=== PATIENT | male | born 1990 | race Caucasian/White ===

== ENCOUNTER 2017-01-08 17:44 | Emergency (ER) | payer SELFPAY ==
[2017-01-08 18:41] VITALS: BP 134/76
--- NOTE | 2017-01-08 18:58 | ER Document Report ---
ED Medical Screen (RME) - General Chief Complaint: Abdominal Pain Stated Complaint: ABDOMINAL PAIN Notes: Patient thinks he has a recurrent hernia in the left lower quadrant of his abdomen. He's been having pain there for about the past week and a half to 2 weeks and it's getting worse. He says that he's had about 7 hernias in the past , and surgery for them. Denies any nausea or vomiting. No change in bowel movements. No UTI symptoms. No fevers. 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 TRAVEL OUTSIDE OF THE [place] IN LAST 30 DAYS: No - Related Data Allergies/Adverse Reactions: cefaclor [From [employer]lor] Allergy (Verified 07/22/15 01:10) Past Medical History Pulmonary Medical History: Reports: Hx Asthma Denies: Hx Tuberculosis Renal/ Medical History: Reports: Hx Kidney Stones. Denies: Hx Peritoneal Dialysis Musculoskeltal Medical History: Reports Hx Musculoskeletal Deformity - scoliosis Traumatic Medical History: Reports: Hx Fractures Past Surgical History: Reports: Hx Abdominal Surgery - HERNIA X 9, Hx Inguinal Hernia - states 9 times - Immunizations Immunizations up to date: Yes Hx Diphtheria, Pertussis, Tetanus Vaccination: Yes Physical Exam - Vital signs Vitals: Temp Pulse Resp BP Pulse Ox 98.5 F 89 20 134/76 H 100 01/08/17 18:40 01/08/17 18:40 01/08/17 18:40 01/08/17 18:40 01/08/17 18:40 Course - Vital Signs Vital signs: Temp Pulse Resp BP Pulse Ox 98.5 F 89 20 134/76 H 100 01/08/17 18:40 01/08/17 18:40 01/08/17 18:40 01/08/17 18:40 01/08/17 18:40
[2017-01-08 19:16] LABS: ABSOLUTE BASOPHILS # (AUTO) 0.1 10^3/uL (0.0-0.2); ABSOLUTE EOSINOPHILS # (AUTO) 0.3 10^3/uL (0.0-0.6); ABSOLUTE LYMPHOCYTES (AUTO) 2.5 10^3/uL (0.5-4.7); ABSOLUTE MONOCYTES (AUTO) 0.7 10^3/uL (0.1-1.4); ABSOLUTE NEUT (AUTO) 7.9 10^3/uL (1.7-8.2); BASOPHILS % (AUTO) 0.7 % (0-2); EOSINOPHILS % (AUTO) 2.2 % (0-6); HEMATOCRIT 46.1 % (37.9-51.0); HEMOGLOBIN 15.8 g/dL (13.5-17.0); HGB HCT DIFFERENCE 1.3; LYMPHOCYTES % (AUTO) 21.9 % (13-45); MEAN CORPUSCULAR HGB CONC 34.2 g/dL (32.0-36.0); MEAN CORPUSCULAR VOLUME 94 fl (80-97); MONOCYTES % (AUTO) 6.2 % (3-13); RED BLOOD COUNT 4.92 10^6/uL (4.35-5.55); RED CELL DISTRIBUTION WIDTH 14.1 % (11.5-14.0); WHITE BLOOD COUNT 11.5 10^3/uL (4.0-10.5)
[2017-01-08 19:33] LABS: ALANINE AMINOTRANSFERASE 32 U/L (21-72); ALBUMIN 5.1 g/dL (3.5-5.0); ALKALINE PHOSPHATASE 54 U/L (38-126); ANION GAP 16 (5-19); ASPARTATE AMINO TRANSFERASE 31 U/L (17-59); BILIRUBIN,DIRECT 0.2 mg/dL (0.0-0.4); BILIRUBIN,TOTAL 0.4 mg/dL (0.2-1.3); BLOOD UREA NITROGEN 16 mg/dL (7-20); CALCIUM 10.7 mg/dL (8.4-10.2); CARBON DIOXIDE 26 mmol/L (22-30); CHLORIDE 103 mmol/L (98-107); CREATININE RESULT 0.79 mg/dL (0.52-1.25); GLUCOSE 71 mg/dL (75-110); LIPASE 43.4 U/L (23-300); POTASSIUM 4.4 mmol/L (3.6-5.0); SODIUM 145.1 mmol/L (137-145); TOTAL PROTEIN 7.8 g/dL (6.3-8.2)
== END 2017-01-09 04:40 | disposition left against medical advice (07) ==
LOC: ER 17:44
DX: Z53.9 Procedure and treatment not carried out, unspecified reason (principal); R10.9 Unspecified abdominal pain
CPT/HCPCS: 36415; 80053; 83690; 85025; 99281

== ENCOUNTER 2017-02-12 13:18 | Emergency (ER) | payer SELFPAY ==
[2017-02-12 13:29] VITALS: BP 134/84
[2017-02-12] MEDS ORDERED: PENICILLIN V POTASSIUM 500 MG TABLET PO ONE (13:46)
[2017-02-12] MEDS ORDERED: ACETAMINOPHEN WITH CODEINE #3 TABLET PO ONE (13:46)
--- NOTE | 2017-02-12 13:50 | ER Document Report ---
HPI - HPI Patient complains to provider of: dental pain Onset: Last week Onset/Duration: Worse Quality of pain: Achy Pain Level: 3 Context: Patient complains of dental pain off and on for the past 3 weeks that worsened over the past week. Patient denies any facial swelling or fever. Associated Symptoms: Other - Dental pain. denies: Nonproductive cough, Productive cough, Fever, Nausea, Vomiting Exacerbated by: Denies Relieved by: Denies Similar symptoms previously: Yes Recently seen / treated by doctor: No - ROS ROS below otherwise negative: Yes Systems Reviewed and Negative: Yes All other systems reviewed and negative - CONSTITUTIONAL Constitutional: DENIES: Fever, Chills - EENT Notes: Dental pain - NEURO Neurology: DENIES: Headache - CARDIOVASCULAR Cardiovascular: DENIES: Chest pain - RESPIRATORY Respiratory: DENIES: Trouble Breathing, Coughing - GASTROINTESTINAL Gastrointestinal: DENIES: Nausea, Patient vomiting - MUSCULOSKELETAL Musculoskeletal: DENIES: Extremity pain, Back Pain, Neck Pain - DERM Skin Color: Normal Skin Problems: None Past Medical History - General Information source: Patient - Social History Smoking Status: Current Every Day Smoker Frequency of alcohol use: None Drug Abuse: None Occupation: construction Lives with: Family Family History: Hypertension, Malignancy Patient has suicidal ideation: No Patient has homicidal ideation: No Pulmonary Medical History: Reports: Hx Asthma Denies: Hx Tuberculosis Renal/ Medical History: Reports: Hx Kidney Stones. Denies: Hx Peritoneal Dialysis Musculoskeltal Medical History: Reports Hx Musculoskeletal Deformity - scoliosis Traumatic Medical History: Reports: Hx Fractures Past Surgical History: Reports: Hx Abdominal Surgery - HERNIA X 9, Hx Inguinal Hernia - states 9 times - Immunizations Immunizations up to date: Yes Hx Diphtheria, Pertussis, Tetanus Vaccination: Yes Hx Pneumococcal Vaccination: 10/01/00 Vertical Provider Document - CONSTITUTIONAL Agree With Documented VS: Yes Exam Limitations: No Limitations General Appearance: WD/WN, No Apparent Distress - INFECTION CONTROL TRAVEL OUTSIDE OF THE [place] IN LAST 30 DAYS: No - HEENT HEENT: Atraumatic, Normocephalic. negative: Pharyngeal Exudate, Pharyngeal Tenderness, Pharyngeal Erythema, Tympanic Membrane Red, Tympanic Membrane Bulging Mouth Diagram: 1 - Dental caries, fracture 2 - Dental caries, fracture, tenderness, no gingival abscess, no trismus - NECK Neck: Normal Inspection, Supple. negative: Lymphadenopathy-Left, Lymphadenopathy-Right - RESPIRATORY Respiratory: Breath Sounds Normal, No Respiratory Distress, Chest Non-Tender O2 Sat by Pulse Oximetry: 100 - CARDIOVASCULAR Cardiovascular: Regular Rate, Regular Rhythm, No Murmur - MUSCULOSKELETAL/EXTREMETIES Musculoskeletal/Extremeties: MAEW - NEURO Level of Consciousness: Awake, Alert, Appropriate Motor/Sensory: No Motor Deficit - DERM Integumentary: Warm, Dry, No Rash Course - Re-evaluation Re-evalutation: 02/12/17 13:47 The patient has been informed that they may have pre-hypertension or hypertension based on a blood pressure reading in the emergency department. I recommend that patient call the primary care provider listed on their discharge instructions or a physician of their choice by this week to arrange follow-up for further evaluation of possible pre-hypertension her hypertension. - Vital Signs Vital signs: Temp Pulse Resp BP Pulse Ox 98.3 F 79 18 134/84 H 100 02/12/17 13:27 02/12/17 13:27 02/12/17 13:27 02/12/17 13:27 02/12/17 13:27 Discharge - Discharge Clinical Impression: Elevated blood pressure reading, Toothache Condition: Stable Disposition: HOME, SELF-CARE Instructions: Oral Narcotic Medication ([facility]), Toothache ([facility]), Penicillin V K ( [facility]) Additional Instructions: Return immediately for any new or worsening symptoms Followup with your primary care provider, call tomorrow to make a followup appointment Your blood pressure was mildly elevated today, recheck with primary doctor in a week. Follow up with a dental care provider for further evaluation Prescriptions: Acetaminophen with Codeine [Acetaminophen-Cod #3 Tablet] 1 each PO Q6 PRN #15 tablet PRN Reason: Penicillin V Potassium [Penicillin Vk 500 mg Tablet] 500 mg PO BID #20 tablet Forms: Elevated Blood Pressure, Return to Work Referrals: [facility] [Provider Group] - Follow up as needed [facility] [Provider Group] - Follow up as needed
== END 2017-02-12 14:06 | disposition home or self-care (01) ==
LOC: ER 13:18
DX: R03.0 Elevated blood-pressure reading, without diagnosis of hypertension (principal); K08.9 Disorder of teeth and supporting structures, unspecified; F17.200 Nicotine dependence, unspecified, uncomplicated; Z87.442 Personal history of urinary calculi
CPT/HCPCS: 99282

== ENCOUNTER 2017-02-27 17:09 | Emergency (ER) | payer SELFPAY ==
--- NOTE | 2017-02-27 18:53 | ER Document Report ---
ED Oral Problem - General Chief Complaint: Toothache Stated Complaint: TOOTH PAIN Time Seen by Provider: 02/27/17 18:29 Mode of Arrival: Ambulatory Information source: Patient Notes: 26-year-old male presents to ED for dental pain and tooth #32. He states he has had for several weeks. He was seen recently for the same tooth that he cannot get into the dentist until 05 March. TRAVEL OUTSIDE OF THE [place] IN LAST 30 DAYS: No - HPI Patient complains to provider of: Toothache Onset: Other - Several weeks worse for the last 3 days Onset: Gradual Quality of pain: Sharp, Throbbing Severity: Moderate Pain Level: 3 Associated symptoms: Toothache Worsened by: Cold Relieved by: Nothing Similar symptoms previously: Yes Recently seen / treated by doctor/dentist: Yes - Related Data Allergies/Adverse Reactions: cefaclor [From Ce[employer]or] Allergy (Verified 07/22/15 01:10) hydrocodone Adverse Reaction (Verified 02/12/17 13:27) itching Past Medical History - General Information source: Patient - Social History Smoking Status: Current Every Day Smoker Cigarette use (# per day): Yes - Pack per day Chew tobacco use (# tins/day): No Smoking Education Provided: Yes - Less than 2 minutes Frequency of alcohol use: Social Drug Abuse: None 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 with: Spouse/Significant other Family History: Arthritis, Hypertension, Malignancy - Past Medical History Cardiac Medical History: Reports: None Pulmonary Medical History: Reports: Hx Asthma EENT Medical History: Reports: None Neurological Medical History: Reports: None Endocrine Medical History: Reports: None Renal/ Medical History: Reports: Hx Kidney Stones Malignancy Medical History: Reports None GI Medical History: Reports: None Musculoskeltal Medical History: Reports Hx Musculoskeletal Deformity - scoliosis Skin Medical History: Reports None Psychiatric Medical History: Reports: None Traumatic Medical History: Reports: Hx Fractures Infectious Medical History: Reports: None Past Surgical History: Reports: Hx Abdominal Surgery - HERNIA X 7, a ventral hernia to inguinal hernia, Hx Inguinal Hernia - states 2 times - Immunizations Immunizations up to date: Yes Hx Diphtheria, Pertussis, Tetanus Vaccination: Yes Hx Pneumococcal Vaccination: 10/01/00 Review of Systems - Review of Systems Constitutional: No symptoms reported EENT: Dental problem Cardiovascular: No symptoms reported Respiratory: No symptoms reported Gastrointestinal: No symptoms reported Genitourinary: No symptoms reported Male Genitourinary: No symptoms reported Musculoskeletal: No symptoms reported Skin: No symptoms reported Hematologic/Lymphatic: No symptoms reported Neurological/Psychological: No symptoms reported Physical Exam - Vital signs Vitals: Temp Pulse Resp BP Pulse Ox 98.8 F 77 16 127/69 H 100 02/27/17 18:50 02/27/17 18:50 02/27/17 18:50 02/27/17 18:50 02/27/17 18:50 Interpretation: Normal - General General appearance: Appears well, Alert - HEENT Head: Normocephalic, Atraumatic Eyes: Normal Pupils: PERRL Ears: Normal External canal: Normal Tympanic membrane: Normal Sinus: Normal Nasal: Normal Mouth/Lips: Caries Mucous membranes: Normal Teeth diagram: 1 - Dental caries large holes mild swelling to the gums 2 - Dental caries 3 - Large dental caries Pharynx: Normal Neck: Normal - Respiratory Respiratory status: No respiratory distress Chest status: Nontender Breath sounds: Normal Chest palpation: Normal - Cardiovascular Rhythm: Regular Heart sounds: Normal auscultation Murmur: No - Abdominal Inspection: Normal Distension: No distension Bowel sounds: Normal Tenderness: Nontender Organomegaly: No organomegaly - Back Back: Normal, Nontender - Extremities General upper extremity: Normal inspection, Nontender, Normal color, Normal ROM , Normal temperature General lower extremity: Normal inspection, Nontender, Normal color, Normal ROM , Normal temperature, Normal weight bearing. No: Josiah's sign - Neurological Neuro grossly intact: Yes Cognition: Normal Orientation: AAOx4 Emilie Coma Scale Eye Opening: Spontaneous [place] Coma Scale Verbal: Oriented [place] Coma Scale Motor: Obeys Commands [place] Coma Scale Total: 15 Speech: Normal Motor strength normal: LUE, RUE, LLE, RLE Sensory: Normal - Psychological Associated symptoms: Normal affect, Normal mood - Skin Skin Temperature: Warm Skin Moisture: Dry Skin Color: Normal Course - Vital Signs Vital signs: Temp Pulse Resp BP Pulse Ox 97.9 F 66 16 132/77 H 98 02/27/17 19:24 02/27/17 19:24 02/27/17 19:24 02/27/17 19:24 02/27/17 19:24 Discharge - Discharge Clinical Impression: Pain due to dental caries Condition: Stable Disposition: HOME, SELF-CARE Additional Instructions: TOOTHACHE: Your pain is due to dental decay. The tooth must be repaired in order for you to feel better. You will, therefore, be referred to a dentist. We do not have dentists on the staff at [facility]. Severe swelling or drainage around a tooth usually means a dental abscess. This also requires evaluation and treatment by the dentist, but antibiotics may be prescribed while awaiting dental treatment. You should be rechecked immediately if you develop major swelling of the face, increasing pain, a lump in the jaw or gums, headache, difficulty swallowing, or fever. CLINDAMYCIN: You have been given a prescription for the antibiotic clindamycin. It is often prescribed for infections in the mouth, such as dental infections or abscesses, and for skin infections due to MRSA. It's important that you take all the medication, unless instructed otherwise by your physician. Failure to complete the entire course can result in relapse of your condition. Common side effects of antibiotics include nausea, intestinal cramping, or diarrhea. Women may develop vaginal yeast infections, and babies can get yeast (thrush) in the mouth following the use of antibiotics. Contact your physician if you develop significant side effects from this medication. Allergy to this antibiotic can result in hives, wheezing, faintness, or itching. If symptoms of allergy occur, stop the medication and call the doctor. Ibuprofen Ibuprofen is an excellent, safe drug for pain control. In addition, it has potent antiinflammatory effects which are beneficial, especially in the treatment of injuries, arthritis, or tendonitis. It's best to take ibuprofen with food. Persons with ulcer disease or allergy to aspirin should notify their physician of this before taking ibuprofen. Take the medication exactly as prescribed. Don't take additional doses unless instructed to do so by your doctor. If you develop wheezing, shortness of breath, hives, faintness, stomach pain, vomiting, or dark black stools, return for re-evaluation at once. Chronic Pain Control Stress, inactivity, and depression make pain more severe regardless of the cause of the pain. Stress and poor physical condition can cause pain such as headaches and backache. Relaxation: Rest in a quiet place with your eyes closed for 20 minutes twice daily. Concentrate on a pleasant image, or simply "feel" your breathing. Clear your mind. Stress management: Deal with your "stressors." Either take action, or eliminate the stressor from your life. Don't let things hang over you. Accept those things you can't change. Nutrition: Eat small, balanced meals -- don't skip, don't overeat. Meals should be high-carbohydrate, low-sugar, low-fat. Exercise: Exercise helps painful conditions and eases stress. Get 30 minutes of moderate exercise, five days a week. Do an activity that does not flare your pain. Precautions: Pain which continues to disrupt daily activities, or which changes in nature, requires a medical evaluation. Pain Clinic referral is available. We do not manage chronic pain in the Emergency Department. We will try to appropriately help you through an acute flare of your chronic painful condition , but for on-going chronic pain that does not improve, you will need to see your private doctor or painter airbrush. We do not provide repeated medication management of chronic painful conditions. If you wish, we can provide the name of local pain management physicians. FOLLOW-UP CARE: You have been referred for follow-up care to the dentists listed below. Call the dentists office for an appointment as you were instructed or within the next two days. If you experience worsening or a significant change in your symptoms, notify the physician immediately or return to the Emergency Department at any time for re-evaluation. [facility] [address] [place], [place] Sunday mornings, by appointment [facility] [address] [place] [address] [facility] [address] [facility] [address] [facility] [address] [facility]. [email or web address] [address] [place] [address] Sunday- 8:00am to 5:00 pm Will see patients from other [facility] [place]. Charges based on income and family size and accepts Medicare, Medicaid, and Insurances Will pull molars [facility], [facility]. [id number] Hours of Operation 8:00 am - 4:30 pm weekdays The following dental offices accept Medicaid: [facility] Dr. Carias Dr. Maurer Dr. Platt Dr. Finn Neel Leavitt [place], and [facility] oral [facility] Dr. Guerra ([place]) Dr. Duarte ([place]) [facility] Drs. Lala ([place]) Dr. Cristina ([place]) [facility], [facility] Dr. Rivera ([place]) Drs. Zaragoza and ([place]) Medicaid Care Line Prescriptions: Ibuprofen 800 mg PO Q8HP PRN #14 tablet PRN Reason: Clindamycin HCl 300 mg PO Q6 7 Days Forms: Smoking Cessation Education, Return to Work
[2017-02-27] MEDS ORDERED: IBUPROFEN 800 MG TABLET PO ONE (18:54)
[2017-02-27] MEDS ORDERED: CLINDAMYCIN HCL 150 MG CAPSULE PO ONE (18:54)
[2017-02-27 19:27] VITALS: BP 132/77
== END 2017-02-27 19:27 | disposition home or self-care (01) ==
LOC: ER 17:09
DX: K02.9 Dental caries, unspecified (principal); F17.210 Nicotine dependence, cigarettes, uncomplicated; J45.909 Unspecified asthma, uncomplicated; Z88.6 Allergy status to analgesic agent
CPT/HCPCS: 99282

== ENCOUNTER 2017-05-14 07:51 | Emergency (ER) | payer SELFPAY ==
--- NOTE | 2017-05-14 08:20 | ER Document Report ---
HPI - HPI Patient complains to provider of: Cough, sore throat Onset: Other Onset/Duration: Persistent - 3 days Quality of pain: Achy Pain Level: 2 Context: Patient presents complaining of productive cough for the past 3 days. Patient does report recent sick contacts with upper respiratory symptoms. Patient denies any fever, nausea, vomiting, or diarrhea. Patient does complain of sore throat as well. Associated Symptoms: Productive cough, Sore throat. denies: Fever, Nausea, Vomiting Exacerbated by: Denies Relieved by: Denies Similar symptoms previously: Yes Recently seen / treated by doctor: No - ROS ROS below otherwise negative: Yes Systems Reviewed and Negative: Yes All other systems reviewed and negative - CONSTITUTIONAL Constitutional: DENIES: Fever - EENT EENT: REPORTS: Sore Throat - NEURO Neurology: DENIES: Headache - CARDIOVASCULAR Cardiovascular: DENIES: Chest pain - RESPIRATORY Respiratory: REPORTS: Coughing. DENIES: Trouble Breathing - GASTROINTESTINAL Gastrointestinal: DENIES: Nausea, Patient vomiting, Diarrhea - MUSCULOSKELETAL Musculoskeletal: DENIES: Back Pain, Neck Pain - DERM Skin Color: Normal Skin Problems: None Past Medical History - General Information source: Patient - Social History Smoking Status: Current Every Day Smoker Frequency of alcohol use: Occasional Drug Abuse: None Occupation: Construction Family History: Arthritis, Hypertension, Malignancy Pulmonary Medical History: Reports: Hx Asthma Denies: Hx Tuberculosis Renal/ Medical History: Reports: Hx Kidney Stones. Denies: Hx Peritoneal Dialysis Musculoskeltal Medical History: Reports Hx Musculoskeletal Deformity - scoliosis Traumatic Medical History: Reports: Hx Fractures Past Surgical History: Reports: Hx Abdominal Surgery - HERNIA X 7, a ventral hernia to inguinal hernia, Hx Inguinal Hernia - states 2 times - Immunizations Immunizations up to date: Yes Hx Diphtheria, Pertussis, Tetanus Vaccination: Yes Hx Pneumococcal Vaccination: 10/01/00 Vertical Provider Document - CONSTITUTIONAL Agree With Documented VS: Yes Exam Limitations: No Limitations General Appearance: WD/WN, No Apparent Distress - INFECTION CONTROL TRAVEL OUTSIDE OF THE [place] IN LAST 30 DAYS: No - HEENT HEENT: Atraumatic, Normocephalic, Pharyngeal Tenderness, Pharyngeal Erythema. negative: Pharyngeal Exudate, Tympanic Membrane Red, Tympanic Membrane Bulging - NECK Neck: Normal Inspection, Supple. negative: Lymphadenopathy-Left, Lymphadenopathy-Right - RESPIRATORY Respiratory: No Respiratory Distress, Chest Non-Tender. negative: Rales, Rhonchi, Wheezing O2 Sat by Pulse Oximetry: 97 Notes: occasional dry cough - CARDIOVASCULAR Cardiovascular: Regular Rate, Regular Rhythm, No Murmur - BACK Back: Normal Inspection. negative: CVA Tenderness-Right, CVA Tenderness-Left - MUSCULOSKELETAL/EXTREMETIES Musculoskeletal/Extremeties: MAEW - NEURO Level of Consciousness: Awake, Alert, Appropriate Motor/Sensory: No Motor Deficit - DERM Integumentary: Warm, Dry, No Rash Course - Re-evaluation Re-evalutation: 05/14/17 08:54 The patient has been informed that they may have pre-hypertension or hypertension based on a blood pressure reading in the emergency department. I recommend that patient call the primary care provider listed on their discharge instructions or a physician of their choice by this week to arrange follow-up for further evaluation of possible pre-hypertension or hypertension. - Vital Signs Vital signs: Temp Pulse Resp BP Pulse Ox 97.9 F 73 19 142/73 H 97 05/14/17 07:52 05/14/17 07:52 05/14/17 07:52 05/14/17 07:52 05/14/17 07:52 - Laboratory Laboratory results interpreted by me: 05/14/17 08:54 Labs- Entire Visit 05/14/17 08:16 Group A Strep Rapid NEGATIVE Discharge - Discharge Clinical Impression: Sore throat Upper respiratory infection Qualifiers: URI type: unspecified URI Qualified Code(s): J06.9 - Acute upper respiratory infection, unspecified Condition: Stable Disposition: HOME, SELF-CARE Instructions: Upper Respiratory Illness ([facility]), Acetaminophen, Sore Throat ([facility]) Additional Instructions: Return immediately for any new or worsening symptoms Followup with your primary care provider, call tomorrow to make a followup appointment Throat culture is pending, we will call if you need any different treatment Stop smoking Prescriptions: Albuterol Sulfate [Ventolin Hfa] 2 puff IH Q4HP PRN #17 gm PRN Reason: Benzonatate [Tessalon [place] 100 mg Capsule] 100 mg PO Q8HP PRN #20 cap PRN Reason: Naproxen [Naprosyn 250 Nmg Tablet] 1 tab PO BID #14 tablet Forms: Return to Work Referrals: [facility] [Provider Group] - Follow up as needed [facility] [Provider Group] - Follow up as needed
[2017-05-14] MEDS ORDERED: IBUPROFEN 800 MG TABLET PO ONE (08:21)
[2017-05-14 09:12] VITALS: BP 129/76
== END 2017-05-14 09:07 | disposition home or self-care (01) ==
LOC: ER 07:51
DX: J06.9 Acute upper respiratory infection, unspecified (principal); J02.9 Acute pharyngitis, unspecified; R05 Cough; F17.200 Nicotine dependence, unspecified, uncomplicated
CPT/HCPCS: 87070; 87077; 87880; 99283

== ENCOUNTER 2017-07-08 20:58 | Emergency (ER) | payer SELFPAY ==
[2017-07-08] MEDS ORDERED: NORMAL SALINE 500 ML IV ONE (21:07)
[2017-07-08 21:48] LABS: ABSOLUTE BASOPHILS # (AUTO) 0.1 10^3/uL (0.0-0.2); ABSOLUTE EOSINOPHILS # (AUTO) 0.2 10^3/uL (0.0-0.6); ABSOLUTE LYMPHOCYTES (AUTO) 2.5 10^3/uL (0.5-4.7); ABSOLUTE MONOCYTES (AUTO) 0.6 10^3/uL (0.1-1.4); ABSOLUTE NEUT (AUTO) 6.3 10^3/uL (1.7-8.2); BASOPHILS % (AUTO) 0.8 % (0-2); EOSINOPHILS % (AUTO) 2.3 % (0-6); HEMOGLOBIN 15.3 g/dL (13.5-17.0); HGB HCT DIFFERENCE 1.9; LYMPHOCYTES % (AUTO) 25.8 % (13-45); MEAN CORPUSCULAR HEMOGLOBIN 32.5 pg (27.0-33.4); MEAN CORPUSCULAR HGB CONC 34.8 g/dL (32.0-36.0); MEAN CORPUSCULAR VOLUME 93 fl (80-97); MONOCYTES % (AUTO) 5.8 % (3-13); RED BLOOD COUNT 4.71 10^6/uL (4.35-5.55); RED CELL DISTRIBUTION WIDTH 13.4 % (11.5-14.0); SEGMENTED NEUTROPHILS % (AUTO) 65.3 % (42-78); WHITE BLOOD COUNT 9.7 10^3/uL (4.0-10.5)
[2017-07-08 22:01] LABS: ALANINE AMINOTRANSFERASE 29 U/L (21-72); ALBUMIN 4.8 g/dL (3.5-5.0); ALKALINE PHOSPHATASE 57 U/L (38-126); ANION GAP 12 (5-19); ASPARTATE AMINO TRANSFERASE 39 U/L (17-59); BILIRUBIN,DIRECT 0.4 mg/dL (0.0-0.4); BILIRUBIN,TOTAL 0.6 mg/dL (0.2-1.3); BLOOD UREA NITROGEN 16 mg/dL (7-20); CALCIUM 9.9 mg/dL (8.4-10.2); CARBON DIOXIDE 31 mmol/L (22-30); CHLORIDE 100 mmol/L (98-107); CREATININE RESULT 0.96 mg/dL (0.52-1.25); GLUCOSE 92 mg/dL (75-110); LIPASE 53.3 U/L (23-300); POTASSIUM 4.6 mmol/L (3.6-5.0); SODIUM 143.3 mmol/L (137-145); TOTAL PROTEIN 7.8 g/dL (6.3-8.2)
[2017-07-08 22:15] LABS: APPEARANCE,URINE CLEAR; BILIRUBIN,URINE NEGATIVE (NEGATIVE); GLUCOSE, URINE NEGATIVE (NEGATIVE); KETONES,URINE NEGATIVE (NEGATIVE); LEUKOCYTE ESTERASE,URINE NEGATIVE (NEGATIVE); NITRITE,URINE NEGATIVE (NEGATIVE); PROTEIN,URINE NEGATIVE (NEGATIVE); URINE SPECIFIC GRAVITY 1.008; UROBILINOGEN,URINE NEGATIVE mg/dL (<2.0)
--- NOTE | 2017-07-08 23:01 | ER Document Report ---
ED General - General Chief Complaint: Abdominal Pain Stated Complaint: LOWER ABDOMINAL PAIN Time Seen by Provider: 07/08/17 22:20 Notes: Patient is a 27-year-old male with past medical history of multiple prior abdominal hernia repairs who presents with 2 months of intermittent abdominal pain. Does describe his abdominal pain as being proximally 5-10 minute episodes of severe, cramping abdominal pain usually the left side of his abdomen that then spontaneously resolves. Nothing seems to trigger the pain and it does resolve spontaneously. He denies a history of similar symptoms in the past. States he does have regular bowel movements. He denies any vomiting or diarrhea. No fever or constitutional symptoms. He has not seen a primary care doctor regarding today's concerns. Nothing is new or different about the pain today that prompted him come to the emergency department. He denies any pain at time of my assessment. TRAVEL OUTSIDE OF THE [place] IN LAST 30 DAYS: No - Related Data Allergies/Adverse Reactions: cefaclor [From Ceclor] Allergy (Verified 05/14/17 07:54) hydrocodone Adverse Reaction (Verified 05/14/17 07:54) itching Past Medical History - General Information source: Patient - Social History Smoking Status: Current Every Day Smoker Chew tobacco use (# tins/day): No Frequency of alcohol use: Occasional Drug Abuse: None Lives with: Spouse/Significant other Family History: Reviewed & Not Pertinent, Arthritis, Hypertension, Malignancy Patient has suicidal ideation: No Patient has homicidal ideation: No Pulmonary Medical History: Reports: Hx Asthma Denies: Hx Tuberculosis Renal/ Medical History: Reports: Hx Kidney Stones. Denies: Hx Peritoneal Dialysis Musculoskeltal Medical History: Reports Hx Musculoskeletal Deformity - scoliosis Traumatic Medical History: Reports: Hx Fractures Past Surgical History: Reports: Hx Abdominal Surgery - HERNIA X 7, a ventral hernia to inguinal hernia, Hx Inguinal Hernia - states 2 times - Immunizations Immunizations up to date: Yes Hx Diphtheria, Pertussis, Tetanus Vaccination: Yes Hx Pneumococcal Vaccination: 10/01/00 Review of Systems - Review of Systems Notes: Constitutional: Negative for fever. HENT: Negative for sore throat. Eyes: Negative for visual changes. Cardiovascular: Negative for chest pain. Respiratory: Negative for shortness of breath. Gastrointestinal: Positive for abdominal pain Genitourinary: Negative for dysuria. Musculoskeletal: Negative for back pain. Skin: Negative for rash. Neurological: Negative for headaches, weakness or numbness. 10 point ROS negative except as marked above and in HPI. Physical Exam - Vital signs Vitals: Temp 97.4 F 07/08/17 21:07 Interpretation: Normal Notes: PHYSICAL EXAMINATION: GENERAL: Well-appearing, well-nourished and in no acute distress. HEAD: Atraumatic, normocephalic. EYES: Pupils equal round and reactive to light, extraocular movements intact, sclera anicteric, conjunctiva are normal. ENT: nares patent, oropharynx clear without exudates. Moist mucous membranes. NECK: Normal range of motion, supple without lymphadenopathy LUNGS: Breath sounds clear to auscultation bilaterally and equal. No wheezes rales or rhonchi. HEART: Regular rate and rhythm without murmurs ABDOMEN: Soft, nontender, normoactive bowel sounds. No guarding, no rebound. No masses appreciated. EXTREMITIES: Normal range of motion, no pitting or edema. No cyanosis. NEUROLOGICAL: No focal neurological deficits. Moves all extremities spontaneously and on command. PSYCH: Normal mood, normal affect. SKIN: Warm, Dry, normal turgor, no rashes or lesions noted. Course - Re-evaluation Re-evalutation: 07/08/17 23:23 Patient presents with 2 months of intermittent left-sided abdominal pain. Abdominal exam is benign here without any focal abdominal tenderness, rebound or guarding. Vitals are within normal limits. Labs are unremarkable. He denies any testicular tenderness. Clinical history is most suggestive of a benign diagnosis such as irritable bowel disease, possible constipation given his characterization of brief episodes of pain lasting approximately 5-10 minutes and then spontaneously resolving. Alternative considerations could include an inflammatory bowel disease although this would be unusual in the setting of an absence of any additional symptoms such as weight loss, vomiting, diarrhea, bloody stools, and in the absence of a leukocytosis on blood work. I have encouraged the patient to trial a MiraLAX cleanout and if this does not resolve his symptoms to follow-up with GI for a colonoscopy for further evaluation. I do not believe any imaging is indicated at this time as I do not suspect an acute life-threatening or surgical diagnosis. At this time will discharge with return precautions and follow-up recommendations. Verbal discharge instructions given a the bedside and opportunity for questions given. Medication warnings reviewed. Patient is in agreement with this plan and has verbalized understanding of return precautions and the need for primary care follow-up in the next 24-72 hours. - Vital Signs Vital signs: Temp Pulse Resp BP Pulse Ox 97.4 F 58 L 18 115/70 98 07/08/17 21:07 07/09/17 00:17 07/09/17 00:17 07/09/17 00:17 07/09/17 00:17 - Laboratory Result Diagrams: 07/08/17 21:24 07/08/17 21:24 Laboratory results interpreted by me: 07/08/17 21:24 Carbon Dioxide 31 H Discharge - Discharge Clinical Impression: Intermittent abdominal pain Condition: Good Disposition: HOME, SELF-CARE Additional Instructions: You have been seen in the Emergency Department (ED) for abdominal pain. Your evaluation did not identify a clear cause of your symptoms but was generally reassuring. For possible constipation: You should take 8 caps of MiraLAX and placed in 1 liter of Gatorade. Drink one half of the solution and wait 4 hours. If you do not have a bowel movement take the remaining half of the solution. Please follow up with your doctor as soon as possible regarding today's emergent visit and the symptoms that are bothering you. Return to the ED if your abdominal pain worsens or fails to improve, you develop bloody vomiting, bloody diarrhea, you are unable to tolerate fluids due to vomiting, fever greater than 101, or other symptoms that concern you. Forms: Return to Work Referrals: PRUDENCIO ANTHONY MD [ACTIVE STAFF] - Follow up as needed
[2017-07-09 00:19] VITALS: BP 115/70
== END 2017-07-09 00:17 | disposition home or self-care (01) ==
LOC: ER 20:58
DX: R10.30 Lower abdominal pain, unspecified (principal); F17.200 Nicotine dependence, unspecified, uncomplicated; Z88.6 Allergy status to analgesic agent; Z87.442 Personal history of urinary calculi
CPT/HCPCS: 99284; 36415; 83690; 85025; 80053; 81001; J7040

== ENCOUNTER 2017-09-25 23:31 | Emergency (ER) | payer SELFPAY ==
[2017-09-25 23:51] VITALS: BP 141/97
[2017-09-26] MEDS ORDERED: ACETAMINOPHEN WITH CODEINE #3 TABLET PO ONE (00:12)
[2017-09-26] MEDS ORDERED: BUPIVACAINE HCL 0.5 % INJ/PF 30 ML SDV INJ ONE (00:12)
[2017-09-26] MEDS ORDERED: PENICILLIN V POTASSIUM 500 MG TABLET PO ONE (00:12)
[2017-09-26] MEDS ORDERED: DIPHENHYDRAMINE HCL 25 MG CAPSULE PO ONE (00:13)
--- NOTE | 2017-09-26 00:13 | ER Document Report ---
HPI - HPI Patient complains to provider of: Toothache Pain Level: 4 Context: Patient is a 27-year-old male presents emergency department complaining of right lower tooth ache for the past 3 days. Patient states his been waxing and waning in severity and got worse tonight. States been taking Tylenol and Motrin at home. Denies any foul odor or drainage, difficulty breathing, difficulty swallowing, fever or chills. - CONSTITUTIONAL Constitutional: DENIES: Fever, Chills Past Medical History - Social History Smoking Status: Current Every Day Smoker Chew tobacco use (# tins/day): No Frequency of alcohol use: Social Drug Abuse: None Family History: Reviewed & Not Pertinent, Arthritis, Hypertension, Malignancy Patient has suicidal ideation: No Patient has homicidal ideation: No Pulmonary Medical History: Reports: Hx Asthma Denies: Hx Tuberculosis Renal/ Medical History: Reports: Hx Kidney Stones. Denies: Hx Peritoneal Dialysis Musculoskeltal Medical History: Reports Hx Musculoskeletal Deformity - scoliosis Traumatic Medical History: Reports: Hx Fractures Past Surgical History: Reports: Hx Abdominal Surgery - HERNIA X 7, a ventral hernia to inguinal hernia, Hx Inguinal Hernia - states 2 times - Immunizations Immunizations up to date: Yes Hx Diphtheria, Pertussis, Tetanus Vaccination: Yes Hx Pneumococcal Vaccination: 10/01/00 Vertical Provider Document - CONSTITUTIONAL Agree With Documented VS: Yes Notes: PHYSICAL EXAM GENERAL: Alert, interacts well. HEENT: NCAT, no facial swelling. MMM, Uvula midline. Airway patent. No evidence of tonsillar enlargement, peritonsillar abscess, retropharyngeal abscess. Patient with tenderness over tooth 32 with evidence of severe dental decay. Patient with dental caries throughout his entire mouth. NECK: No evidence of Husam's angina full range of motion. Supple. Trachea midline. LUNGS: Clear to auscultation bilaterally, no wheezes, rales, or rhonchi. No respiratory distress. HEART: Regular rate and rhythm. No murmurs, gallops, or rubs. NEUROLOGICAL: Alert and oriented x4. Normal speech. PSYCH: Normal affect, normal mood. SKIN: Warm, dry, normal turgor. No rashes or lesions noted. - INFECTION CONTROL TRAVEL OUTSIDE OF THE [place] IN LAST 30 DAYS: No - RESPIRATORY O2 Sat by Pulse Oximetry: 100 Course - Re-evaluation Re-evalutation: 09/26/17 00:46 Patient is a 27-year-old male who is hemodynamically stable, no acute distress and afebrile. Presentation is most consistent with likely an infected tooth. Airway is patent. Vitals within normal limits. Patient is able swallow without any difficulty. There is no significant facial swelling. Patient will be started on antibiotics. Patient received a 5 cc infra alveolar dental block with complete resolution of his pain and no complications.. I've instructed to follow-up with dentistry as earliest ability for definitive management. Return precautions and follow-up recommendations have been discussed at length. - Vital Signs Vital signs: Temp Pulse Resp BP Pulse Ox 98.1 F 75 20 141/97 H 100 09/25/17 23:51 09/25/17 23:51 09/25/17 23:51 09/25/17 23:51 09/25/17 23:51 Procedures - Additional Procedures Dental block Additional Procedures: Other - Patient received a 5 cc 0.5% bupivacaine infraalveolar dental block with complete resolution of his symptoms no complications and patient told the procedure well Discharge - Discharge Clinical Impression: Toothache Condition: Good Disposition: HOME, SELF-CARE Additional Instructions: You have been seen for dental pain. It is very important that you follow-up with a dentist for definitive care. Please return if you develop fever greater than 101, swelling in your face, vomiting, difficulty breathing or swallowing, or any other symptoms that are concerning to you. For pain you should take ibuprofen 600 mg every 6 hours as needed. TOOTHACHE: Your pain is due to dental decay. The tooth must be repaired in order for you to feel better. You will, therefore, be referred to a dentist. We do not have dentists on the staff at [facility]. Severe swelling or drainage around a tooth usually means a dental abscess. This also requires evaluation and treatment by the dentist, but antibiotics may be prescribed while awaiting dental treatment. You should be rechecked immediately if you develop major swelling of the face, increasing pain, a lump in the jaw or gums, headache, difficulty swallowing, or fever. PENICILLIN V K: You have been given a prescription for Penicillin VK. Your physician has determined that this is the best antibiotic for your condition. Pen VK can be taken with meals, however more of the antibiotic gets into the bloodstream if it's taken on an empty stomach. Penicillin usually has no side effects. However, allergy to penicillins is common. If you have had an allergic reaction to any drug of the penicillin family, you should never take any other penicillin. Notify your doctor at once if you develop hives, itching, swelling, faintness, or shortness of breath. FOLLOW-UP CARE: You have been referred for follow-up care to the dentists listed below. Call the dentists office for an appointment as you were instructed or within the next two days. If you experience worsening or a significant change in your symptoms, notify the physician immediately or return to the Emergency Department at any time for re-evaluation. [facility] [address] Sunday mornings, by appointment [facility] [address] [address] For Patients If you need a regular family dentist and are considering the [facility] as a care provider, the first thing you'll need to do is make an appointment in our Screening Clinic by calling [phone] between the hours of 8:00 a.m. and 5:00 p.m. Sunday through Sunday. Because we are a teaching program, we will spend more time with you for each visit, and we may ask you to make a few extra visits to complete your dental care. We think you will enjoy our compassionate care, affordable fees, and friendly environment. Parking [facility] is handy, free, and easy. Patients are asked to park on the [facility] side of the building in areas designated as Patient Parking. Screening Clinic The purpose of the screening appointment is to gather information about your overall health, dental treatment needs, and to determine if treatment in our student clinics is right for you. We regret that all patients screened cannot be accepted for dental care in our student clinics. We will offer alternative treatment options if that is the case. Screening is not a treatment planning appointment, and no treatment other than a limited examination/diagnosis will be performed at the screening appointment. Your appointment will be in [facility] located at [facility] in [place]. Fees and Payment There is no charge for the initial screening appointment except for fees incurred for dental x-rays. Patients will be charged for dental x-rays and treatment during future visits. The cost of dental care in student and resident clinics is less than at most private dental offices. Medicaid and most private dental insurance plans are accepted. We accept mathur, credit cards, and personal checks. As a patient, you will receive detailed information concerning our financial policies. Prescriptions: Penicillin V Potassium [Penicillin Vk 500 mg Tablet] 500 mg PO TID 7 Days #21 tablet Forms: Return to Work
[2017-09-26] MEDS ORDERED: HYDROCODONE/ACETAMINOPHEN 5-325 MG (6 TAB/ER DISP) PO PRN (00:50)
== END 2017-09-26 00:57 | disposition home or self-care (01) ==
LOC: ER 23:31
PROC: 3E0T3BZ Introduction of Anesthetic Agent into Peripheral Nerves and Plexi, Percutaneous Approach (ICD-10-PCS; principal; 2017-09-25)
DX: K08.89 Other specified disorders of teeth and supporting structures (principal); F17.200 Nicotine dependence, unspecified, uncomplicated
CPT/HCPCS: 99282

== ENCOUNTER 2017-11-14 13:22 | Emergency (ER) | payer SELFPAY ==
--- NOTE | 2017-11-14 14:21 | ER Document Report ---
ED Fever - General Chief Complaint: Fever Stated Complaint: VOMITING,COUGH,FEVER Time Seen by Provider: 11/14/17 14:18 Mode of Arrival: Ambulatory Information source: Patient Notes: Patient presents with vomiting fever chills body aches coughing and decreased energy. Symptoms worse with exertion better with rest. They have been intermittent. They have been moderate. He states it started 3 days ago. TRAVEL OUTSIDE OF THE [place] IN LAST 30 DAYS: No - Related Data Allergies/Adverse Reactions: amoxicillin Allergy (Verified 11/14/17 13:23) cefaclor [From Ceclor] Allergy (Verified 11/14/17 13:23) hydrocodone Adverse Reaction (Verified 11/14/17 13:23) itching Past Medical History - Social History Smoking Status: Current Every Day Smoker Frequency of alcohol use: Occasional Drug Abuse: None Family History: Reviewed & Not Pertinent, Arthritis, Hypertension, Malignancy Patient has suicidal ideation: No Patient has homicidal ideation: No Pulmonary Medical History: Reports: Hx Asthma Denies: Hx Tuberculosis Renal/ Medical History: Reports: Hx Kidney Stones. Denies: Hx Peritoneal Dialysis Musculoskeltal Medical History: Reports Hx Musculoskeletal Deformity - scoliosis Traumatic Medical History: Reports: Hx Fractures Past Surgical History: Reports: Hx Abdominal Surgery - HERNIA X 8, a ventral hernia to inguinal hernia, Hx Inguinal Hernia - states 2 times - Immunizations Immunizations up to date: Yes Hx Diphtheria, Pertussis, Tetanus Vaccination: Yes Hx Pneumococcal Vaccination: 10/01/00 Review of Systems - Review of Systems Constitutional: Chills, Fever EENT: Nose congestion, Nose discharge Respiratory: Cough. denies: Short of breath Physical Exam - Vital signs Vitals: Temp Pulse Resp BP Pulse Ox 98.4 F 63 16 137/70 H 99 11/14/17 13:42 11/14/17 13:42 11/14/17 13:42 11/14/17 13:42 11/14/17 13:42 Interpretation: Normal - General General appearance: Appears well, Alert - HEENT Head: Normocephalic, Atraumatic Eyes: Normal Pupils: PERRL - Respiratory Respiratory status: No respiratory distress Chest status: Nontender Breath sounds: Normal Chest palpation: Normal - Cardiovascular Rhythm: Regular Heart sounds: Normal auscultation Murmur: No - Abdominal Inspection: Normal Distension: No distension Bowel sounds: Normal Tenderness: Nontender Organomegaly: No organomegaly - Back Back: Normal, Nontender - Extremities General upper extremity: Normal inspection, Nontender, Normal color, Normal ROM , Normal temperature General lower extremity: Normal inspection, Nontender, Normal color, Normal ROM , Normal temperature, Normal weight bearing. No: Josiah's sign - Neurological Neuro grossly intact: Yes Cognition: Normal Orientation: AAOx4 [place] Coma Scale Eye Opening: Spontaneous Emilie Coma Scale Verbal: Oriented [place] Coma Scale Motor: Obeys Commands Emilie Coma Scale Total: 15 Speech: Normal Motor strength normal: LUE, RUE, LLE, RLE Sensory: Normal - Psychological Associated symptoms: Normal affect, Normal mood - Skin Skin Temperature: Warm Skin Moisture: Dry Skin Color: Normal Course - Vital Signs Vital signs: Temp Pulse Resp BP Pulse Ox 98.4 F 63 16 137/70 H 99 11/14/17 13:42 11/14/17 13:42 11/14/17 13:42 11/14/17 13:42 11/14/17 13:42 Discharge - Discharge Clinical Impression: Influenza Condition: Stable Disposition: HOME, SELF-CARE Instructions: Influenza ([facility]) [id number] Additional Instructions: Your contagious from 7 days after the first day of symptoms. Please do your best to take precautions when around others so that you do not spread the flu illness. Prescriptions: Codeine/Promethazine HCl [Promethazine-Codeine Syrup] 10 ml PO Q4 PRN #1 bottle PRN Reason: Forms: Return to Work
[2017-11-14 14:39] VITALS: BP 122/64
== END 2017-11-14 14:27 | disposition home or self-care (01) ==
LOC: ER 13:22
DX: J11.1 Influenza due to unidentified influenza virus with other respiratory manifestations (principal); R50.9 Fever, unspecified; R11.10 Vomiting, unspecified; F17.200 Nicotine dependence, unspecified, uncomplicated; Z88.0 Allergy status to penicillin
CPT/HCPCS: 99283

== ENCOUNTER 2018-03-21 15:37 | Emergency (ER) | payer SELFPAY ==
--- NOTE | 2018-03-21 16:39 | RADIOLOGY REPORT (SQ) ---
EXAM DESCRIPTION: CHEST 2 VIEWS COMPLETED DATE/TIME: 03/21/2018 4:28 pm REASON FOR STUDY: cough COMPARISON: 12/18/2006 EXAM PARAMETERS: NUMBER OF VIEWS: two views TECHNIQUE: Digital Frontal and Lateral radiographic views of the chest acquired. RADIATION DOSE: NA LIMITATIONS: none FINDINGS: LUNGS AND PLEURA: No opacities, masses or pneumothorax. No pleural effusion. MEDIASTINUM AND HILAR STRUCTURES: No masses or contour abnormalities. HEART AND VASCULAR STRUCTURES: Heart normal size. No evidence for failure. BONES: Mild scoliosis. HARDWARE: None in the chest. OTHER: No other significant finding. IMPRESSION: Mild scoliosis. No acute cardiopulmonary disease. TECHNICAL DOCUMENTATION: JOB ID: [id number] [employer]- All Rights Reserved Reading location - IP/workstation name: [email or web address]
[2018-03-21] MEDS ORDERED: IBUPROFEN 600 MG TABLET PO ONE (16:44)
--- NOTE | 2018-03-21 16:49 | ER Document Report ---
ED Respiratory Problem - General Chief Complaint: Cough Stated Complaint: COUGH Time Seen by Provider: 03/21/18 16:20 Mode of Arrival: Ambulatory Information source: Patient TRAVEL OUTSIDE OF THE [place] IN LAST 30 DAYS: No - HPI Patient complains to provider of: Cough Notes: Patient is here with complaints of cough. He states been coughing for the last 4-5 days. No fevers. No significant difficulty breathing. He states that occasionally his ribs hurt when he coughs but denies any chest pain otherwise. He denies any recent long trips or surgeries, leg pain or leg swelling, history of DVT or PE. No fever. No nausea, vomiting, diarrhea. He does have a prior history of asthma. He is a smoker. He denies any syncope or dizziness. Nothing seems to make his symptoms better or worse. He denies any other complaints. - Related Data Allergies/Adverse Reactions: amoxicillin Allergy (Verified 11/14/17 13:23) cefaclor [From Ceclor] Allergy (Verified 11/14/17 13:23) hydrocodone Adverse Reaction (Verified 11/14/17 13:23) itching Past Medical History - Social History Smoking Status: Current Every Day Smoker Chew tobacco use (# tins/day): No Frequency of alcohol use: Occasional Drug Abuse: None Family History: Reviewed & Not Pertinent, Arthritis, Hypertension, Malignancy Patient has suicidal ideation: No Patient has homicidal ideation: No Pulmonary Medical History: Reports: Hx Asthma Denies: Hx Tuberculosis Renal/ Medical History: Reports: Hx Kidney Stones. Denies: Hx Peritoneal Dialysis Musculoskeltal Medical History: Reports Hx Musculoskeletal Deformity - scoliosis Traumatic Medical History: Reports: Hx Fractures Past Surgical History: Reports: Hx Abdominal Surgery - HERNIA X 8, a ventral hernia to inguinal hernia, Hx Inguinal Hernia - states 2 times - Immunizations Immunizations up to date: Yes Hx Diphtheria, Pertussis, Tetanus Vaccination: Yes Hx Pneumococcal Vaccination: 10/01/00 Review of Systems - Review of Systems -: Yes All other systems reviewed and negative Physical Exam - Vital signs Vitals: Temp Pulse Resp BP Pulse Ox 98.7 F 77 17 130/74 H 99 03/21/18 15:53 03/21/18 15:53 03/21/18 15:53 03/21/18 15:53 03/21/18 15:53 - Notes Notes: GENERAL: alert, cooperative, nontoxic, no distress. HEAD: normocephalic, atraumatic EYES: conjunctiva pink without discharge, no external redness or swelling. EARS: no external swelling, no external redness, no mastoid redness, swelling, tenderness. Ear canals are clear without swelling or drainage. TMs pearly vincent , no redness, no bulging, normal landmarks, no perforation. NOSE: atraumatic, no external swelling. clear rhinorrhea noted. MOUTH/THROAT: mucous membranes moist and pink, posterior pharynx without erythema, swelling, exudate. No trismus or drooling. NECK: soft, supple, full range of motion, no meningismus. CHEST: no distress, lungs clear and equal throughout. No wheezing, rales, rhonchi. CARDIAC: regular rate and rhythm, no murmur, normal capillary refill, normal pulses. No peripheral edema noted. BACK: full range of motion, no CVA tenderness. EXTREMITIES: full range of motion of all extremities. No redness, no swelling. NEURO: alert and oriented A&O3, no focal deficits, full range of motion of all extremities. PYSCH: appropriate mood, affect. Patient is cooperative. SKIN: pink, warm, dry, no rash. Course - Re-evaluation Re-evalutation: 03/21/18 16:47 Patient is nontoxic-appearing with stable vitals. The patient is here with complaints of cough times the last several days. No fever. Occasionally has pain in his ribs when he coughs but denies any chest pain currently. He is a benign exam. No PE risk factors. Chest x-ray is negative. Vitals are stable with no hypoxia or fever. At this point the patient likely has a URI. He was instructed to stop smoking. He will be discharged home with a prescription for Naprosyn and Tessalon Perles. He is instructed to drink plenty fluids. Follow- up with his doctor if not better in 1 week, sooner for worsening symptoms, high fever, difficulty breathing or swelling, or for any further concerns. The patient's emergency department workup and current diagnosis were explained to the patient and or family. Follow-up instructions were provided. Medications if prescribed were discussed. Instructions for when to return to the emergency department including specific worrisome symptoms were discussed with the patient and/or family. The patient is noted to have elevated blood pressure during today's emergency department visit. The patient was informed of this finding. The patient was instructed that this may be related to pre-hypertension and requires further evaluation with a primary care provider. The patient has no hypertensive symptoms at this time. - Vital Signs Vital signs: Temp Pulse Resp BP Pulse Ox 98.7 F 77 17 130/74 H 99 03/21/18 15:53 03/21/18 15:53 03/21/18 15:53 03/21/18 15:53 03/21/18 15:53 - Diagnostic Test Radiology reviewed: Image reviewed, Reports reviewed - Negative chest x-ray Discharge - Discharge Clinical Impression: URI (upper respiratory infection) Qualifiers: URI type: unspecified viral URI Qualified Code(s): J06.9 - Acute upper respiratory infection, unspecified Condition: Stable Disposition: HOME, SELF-CARE Instructions: Upper Respiratory Illness ([facility]) Additional Instructions: Take medications as prescribed. Drink lots of fluids. Stop smoking. Follow- up if not better in 1 week, sooner for worsening symptoms, high fever, difficulty breathing or swallowing, persistent vomiting, or for any further concerns. Your blood pressure was elevated during today's visit. Have this rechecked with your doctor. Prescriptions: Benzonatate [Tessalon Perle 100 mg Capsule] 100 mg PO Q8HP PRN #20 cap PRN Reason: Naproxen [Naprosyn] 500 mg PO BID #20 tablet Forms: Elevated Blood Pressure, Smoking Cessation Education Referrals: [facility] [Provider Group] - Follow up as needed
[2018-03-21 16:56] VITALS: BP 124/74
== END 2018-03-21 16:56 | disposition home or self-care (01) ==
LOC: ER 15:37
DX: J06.9 Acute upper respiratory infection, unspecified (principal); R05 Cough; R03.0 Elevated blood-pressure reading, without diagnosis of hypertension; J45.909 Unspecified asthma, uncomplicated; F17.200 Nicotine dependence, unspecified, uncomplicated
CPT/HCPCS: 71046; 99283

== ENCOUNTER 2018-05-13 17:05 | Emergency (ER) | payer SELFPAY ==
[2018-05-13 17:13] VITALS: BP 118/62
[2018-05-13] MEDS ORDERED: CLINDAMYCIN HCL 150 MG CAPSULE PO ONE (17:44)
--- NOTE | 2018-05-13 17:51 | ER Document Report ---
HPI - HPI Pain Level: 4 Notes: Patient presents with chief complaint of dental pain. Patient reports that he has an appointment with his dentist but they can to get him in for 7 days. Patient reports dental pain all over, worse pain to the left lower side. Multiple dental caries noted. - CONSTITUTIONAL Constitutional: DENIES: Fever, Chills - EENT EENT: DENIES: Sore Throat, Ear Pain, Eye problems - NEURO Neurology: DENIES: Headache, Weakness, Vision blurred, Dizzinesss / Vertigo - CARDIOVASCULAR Cardiovascular: DENIES: Chest pain - RESPIRATORY Respiratory: DENIES: Trouble Breathing, Coughing - GASTROINTESTINAL Gastrointestinal: DENIES: Abdominal Pain, Black / Bloody Stools - URINARY Urinary: DENIES: Dysuria, Urgency, Frequency - REPRODUCTIVE Reproductive: DENIES: :, Postmenopausal, Abnormal bleeding / discharge - MUSCULOSKELETAL Musculoskeletal: DENIES: Extremity pain Past Medical History - General Information source: Patient - Social History Smoking Status: Current Every Day Smoker Chew tobacco use (# tins/day): No Frequency of alcohol use: None Family History: Reviewed & Not Pertinent, Arthritis, Hypertension, Malignancy Patient has suicidal ideation: No Patient has homicidal ideation: No Pulmonary Medical History: Reports: Hx Asthma Denies: Hx Tuberculosis Renal/ Medical History: Reports: Hx Kidney Stones. Denies: Hx Peritoneal Dialysis Musculoskeletal Medical History: Reports Hx Musculoskeletal Deformity - scoliosis Traumatic Medical History: Reports: Hx Fractures Past Surgical History: Reports: Hx Abdominal Surgery - HERNIA X 8, a ventral hernia to inguinal hernia, Hx Inguinal Hernia - states 2 times - Immunizations Immunizations up to date: Yes Hx Diphtheria, Pertussis, Tetanus Vaccination: Yes Hx Pneumococcal Vaccination: 10/01/00 Vertical Provider Document - CONSTITUTIONAL Notes: PHYSICAL EXAMINATION: GENERAL: Well-appearing, well-nourished and in no acute distress. HEAD: Atraumatic, normocephalic. EYES: Pupils equal round extraocular movements intact, conjunctiva are normal. ENT: Nares patent NECK: Normal range of motion LUNGS: No respiratory distress Musculoskeletal: Normal range of motion NEUROLOGICAL: Normal speech, normal gait. PSYCH: Normal mood, normal affect. SKIN: Warm, Dry, normal turgor, no rashes or lesions noted. - INFECTION CONTROL TRAVEL OUTSIDE OF THE [place] IN LAST 30 DAYS: No Course - Re-evaluation Re-evalutation: No drainable abscess identified, patient declines dental block. [facility]. - Vital Signs Vital signs: Temp Pulse Resp BP Pulse Ox 98.5 F 63 18 118/62 100 05/13/18 17:11 05/13/18 17:11 05/13/18 17:11 05/13/18 17:11 05/13/18 17:11 Discharge - Discharge Clinical Impression: Dental infection Condition: Stable Disposition: HOME, SELF-CARE Additional Instructions: TOOTHACHE: Your pain is due to dental decay. The tooth must be repaired in order for you to feel better. You will, therefore, be referred to a dentist. We do not have dentists on the staff at [facility]. Severe swelling or drainage around a tooth usually means a dental abscess. This also requires evaluation and treatment by the dentist, but antibiotics may be prescribed while awaiting dental treatment. You should be rechecked immediately if you develop major swelling of the face, increasing pain, a lump in the jaw or gums, headache, difficulty swallowing, or fever. ORAL NARCOTIC MEDICATION: You have been given a prescription for pain control. This medication is a narcotic. It's best taken with food, as nausea can result if taken on an empty stomach. Don't operate machinery or drive within six hours of taking this medication. Do not combine this medicine with alcohol, or with any medication which can cause sedation (such as cold tablets or sleeping pills) unless you get permission from the physician. Narcotics tend to cause constipation. If possible, drink plenty of fluids and eat a diet high in fiber and fruits. Please be aware that prescription narcotics also have the potential for abuse. People become addicted to these medications because of the general sense of wellbeing that they induce. This feeling along with a significant reduction in tension, anxiety, and aggression provides a stimulating seductive quality to these drugs. Once your pain is under control, we encourage you to discard your unused narcotics. CLINDAMYCIN: You have been given a prescription for the antibiotic clindamycin. It is often prescribed for infections in the mouth, such as dental infections or abscesses, and for skin infections due to MRSA. It's important that you take all the medication, unless instructed otherwise by your physician. Failure to complete the entire course can result in relapse of your condition. Common side effects of antibiotics include nausea, intestinal cramping, or diarrhea. Women may develop vaginal yeast infections, and babies can get yeast (thrush) in the mouth following the use of antibiotics. Contact your physician if you develop significant side effects from this medication. Allergy to this antibiotic can result in hives, wheezing, faintness, or itching. If symptoms of allergy occur, stop the medication and call the doctor. FOLLOW-UP CARE: You have been referred for follow-up care to the dentists listed below. Call the dentists office for an appointment as you were instructed or within the next two days. If you experience worsening or a significant change in your symptoms, notify the physician immediately or return to the Emergency Department at any time for re-evaluation. [facility] [address] Prescriptions: Clindamycin HCl 300 mg PO TID #21 capsule Tramadol HCl 50 mg PO Q6H PRN #10 tablet PRN Reason: For Pain
== END 2018-05-13 18:03 | disposition home or self-care (01) ==
LOC: ER 17:05
DX: K04.7 Periapical abscess without sinus (principal); K02.9 Dental caries, unspecified; K08.89 Other specified disorders of teeth and supporting structures; J45.909 Unspecified asthma, uncomplicated; F17.200 Nicotine dependence, unspecified, uncomplicated
CPT/HCPCS: 99282

== ENCOUNTER 2018-07-05 14:01 | Emergency (ER) | payer SELFPAY ==
[2018-07-05 14:20] VITALS: BP 126/69
--- NOTE | 2018-07-05 14:49 | ER Document Report ---
ED Medical Screen (RME) - General Chief Complaint: Abdominal Pain Stated Complaint: LOW LEFT ABDOMINAL PAIN Time Seen by Provider: 07/05/18 14:35 Notes: 28-year-old male patient reports pain in the left lower quadrant abdomen off and on for 8-9 months. States it comes and goes, could be gone for 1-2 months and then come back, gone for a few days to a few weeks and come back. The last 2 days the pain is possibly been a little more laterally, very sharp, and when it gets worse it provokes nausea and vomiting. He states he has kidney stones and passed his last stone at home about 8 months ago. I have greeted and performed a rapid initial assessment of this patient. A comprehensive ED assessment and evaluation of the patient, analysis of test results and completion of the medical decision making process will be conducted by additional ED providers. TRAVEL OUTSIDE OF THE [place] IN LAST 30 DAYS: No - Related Data Allergies/Adverse Reactions: amoxicillin Allergy (Verified 11/14/17 13:23) cefaclor [From Ceclor] Allergy (Verified 11/14/17 13:23) hydrocodone Adverse Reaction (Verified 11/14/17 13:23) itching Past Medical History - Social History Chew tobacco use (# tins/day): Yes Frequency of alcohol use: Occasional Drug Abuse: None Pulmonary Medical History: Reports: Hx Asthma Denies: Hx Tuberculosis Renal/ Medical History: Reports: Hx Kidney Stones. Denies: Hx Peritoneal Dialysis Musculoskeltal Medical History: Reports Hx Musculoskeletal Deformity - scoliosis Traumatic Medical History: Reports: Hx Fractures Past Surgical History: Reports: Hx Abdominal Surgery - HERNIA X 8, a ventral hernia to inguinal hernia, Hx Inguinal Hernia - states 2 times - Immunizations Immunizations up to date: Yes Hx Diphtheria, Pertussis, Tetanus Vaccination: Yes History of Influenza Vaccine for 07/2017 - 11/2017 Season: Refused Physical Exam - Vital signs Vitals: Temp Pulse Resp BP Pulse Ox 98.4 F 64 16 126/69 H 100 07/05/18 14:18 07/05/18 14:18 07/05/18 14:18 07/05/18 14:18 07/05/18 14:18 Course - Vital Signs Vital signs: Temp Pulse Resp BP Pulse Ox 98.4 F 64 16 126/69 H 100 07/05/18 14:18 07/05/18 14:18 07/05/18 14:18 07/05/18 14:18 07/05/18 14:18
[2018-07-05 15:26] LABS: APPEARANCE,URINE CLEAR; BILIRUBIN,URINE NEGATIVE (NEGATIVE); COLOR,URINE YELLOW; GLUCOSE, URINE NEGATIVE (NEGATIVE); KETONES,URINE NEGATIVE (NEGATIVE); LEUKOCYTE ESTERASE,URINE NEGATIVE (NEGATIVE); NITRITE,URINE NEGATIVE (NEGATIVE); PROTEIN,URINE 30 mg/dL (NEGATIVE); URINE SPECIFIC GRAVITY 1.024
--- NOTE | 2018-07-05 15:28 | RADIOLOGY REPORT (SQ) ---
EXAM DESCRIPTION: CT LTD RENAL STONE PROTOCOL ON COMPLETED DATE/TIME: 07/05/2018 3:02 pm REASON FOR STUDY: Sharp LLQ abd pain, PMH kidney stones COMPARISON: 07/22/2015 TECHNIQUE: CT scan of the abdomen and pelvis performed without intravenous or oral contrast. Images reviewed with lung, soft tissue, and bone windows. Reconstructed coronal and sagittal MPR images revi ewed. All images stored on PACS. All CT scanners at this facility use dose modulation, iterative reconstruction, and/or weight based d osing when appropriate to reduce radiation dose to as low as reasonably achievable (ALARA). [facility]: Dose Right [facility]: CareDose [facility]: Dose Right [facility]: Teradose 4D [facility]: Yurpy RADIATION DOSE: CT Rad equipment meets quality standard of care and radiation dose reduction techniq ues were employed. CTDIvol: 4.8 mGy. DLP: 250 mGy-cm.mGy. LIMITATIONS: None. FINDINGS: LOWER CHEST: No significant findings. No nodules or infiltrates. NON-CONTRASTED LIVER, SPLEEN, ADRENALS: Evaluation limited by lack of IV contrast. No identified sign ificant masses. PANCREAS: No masses. No peripancreatic inflammatory changes. GALLBLADDER: No identified stones by CT criteria. No inflammatory changes to suggest cholecystitis. RIGHT KIDNEY AND URETER: No suspicious masses. Assessment limited by lack of IV contrast. No signif icant calcifications. No hydronephrosis or hydroureter. LEFT KIDNEY AND URETER: No suspicious masses. Assessment limited by lack of IV contrast. 2 mm rib r enal calculus. No hydronephrosis or hydroureter. AORTA AND RETROPERITONEUM: No aneurysm. No retroperitoneal masses or adenopathy. BOWEL AND PERITONEAL CAVITY: No obvious masses or inflammatory changes. No free fluid. APPENDIX: Normal. PELVIS, BLADDER, AND ABDOMINAL WALL:No abnormal masses. No free fluid. Bladder normal. BONES: No significant findings. OTHER: No other significant finding. IMPRESSION: Small nonobstructing stone left kidney. COMMENT: Quality ID # [id number]: Final reports with documentation of one or more dose reduction techniques (e.g., Automated exposure control, adjustment of the mA and/or kV according to patient size, use of iterative reconstruction technique) TECHNICAL DOCUMENTATION: JOB ID: [id number] [employer]- All Rights Reserved Reading location - IP/workstation name: [facility]
--- NOTE | 2018-07-05 16:14 | ER Document Report ---
ED GI/ - General Chief Complaint: Abdominal Pain Stated Complaint: LOW LEFT ABDOMINAL PAIN Time Seen by Provider: 07/05/18 14:35 Information source: Patient Notes: Patient is a 28-year-old male comes emergency room complaining of left lower quadrant pain. Patient states that this pain has been with him for quite a while. He states that it is very erratic in its presentation. It will come and hitting hard for a couple of days then it would go away for maybe a day or 2 or even a month or 2 and then come back again stay around for a day and then go away again. This pain is located in his left lower quad more laterally. Patient denies any dysuria denies fevers denies any other pains and states that today when it hit him he ended up vomiting. Patient has a history of kidney stones and states last one pass was several months ago. He also has a very pertinent history for having 7 abdominal surgeries for hernia repairs. Most all of them on that left side. TRAVEL OUTSIDE OF THE [place] IN LAST 30 DAYS: No - HPI Patient complains to provider of: Abdominal pain Onset: This morning Timing/Duration: Sudden, Waxing and waning, Gone Quality of pain: Sharp, Stabbing Severity at maximum: Severe Severity in ED: Moderate Pain Level: 2 Adult Front & Back Diagram: 1 - Area of discomfort Sexual history: Active Associated symptoms: denies: Foreskin problem, Hard stool, Hematuria, Radiates to testicles Exacerbated by: Movement Relieved by: Denies Similar symptoms previously: Yes Recently seen / treated by doctor: No - Related Data Allergies/Adverse Reactions: amoxicillin Allergy (Verified 11/14/17 13:23) cefaclor [From Ceclor] Allergy (Verified 11/14/17 13:23) hydrocodone Adverse Reaction (Verified 11/14/17 13:23) itching Past Medical History - General Information source: Patient - Social History Smoking Status: Current Every Day Smoker Cigarette use (# per day): Yes - Pack a day Chew tobacco use (# tins/day): Yes Smoking Education Provided: Yes Frequency of alcohol use: Occasional Drug Abuse: None Family History: Reviewed & Not Pertinent, Arthritis, Hypertension, Malignancy Patient has suicidal ideation: No Patient has homicidal ideation: No Pulmonary Medical History: Reports: Hx Asthma Denies: Hx Tuberculosis Renal/ Medical History: Reports: Hx Kidney Stones. Denies: Hx Peritoneal Dialysis Musculoskeletal Medical History: Reports Hx Musculoskeletal Deformity - scoliosis Traumatic Medical History: Reports: Hx Fractures Past Surgical History: Reports: Hx Abdominal Surgery - HERNIA X 8, a ventral hernia to inguinal hernia, Hx Inguinal Hernia - states 2 times - Immunizations Immunizations up to date: Yes Hx Diphtheria, Pertussis, Tetanus Vaccination: Yes Hx Pneumococcal Vaccination: 10/01/00 Review of Systems - Review of Systems Constitutional: No symptoms reported EENT: No symptoms reported Cardiovascular: No symptoms reported Respiratory: No symptoms reported Gastrointestinal: Abdominal pain, Vomiting Genitourinary: No symptoms reported Male Genitourinary: No symptoms reported Musculoskeletal: No symptoms reported Skin: No symptoms reported Hematologic/Lymphatic: No symptoms reported Neurological/Psychological: No symptoms reported -: Yes All other systems reviewed and negative Physical Exam - Vital signs Vitals: Temp Pulse Resp BP Pulse Ox 98.4 F 64 16 126/69 H 100 07/05/18 14:18 07/05/18 14:18 07/05/18 14:18 07/05/18 14:18 07/05/18 14:18 Interpretation: Normal - Notes Notes: Patient is a well-developed well-nourished male no apparent distress. - General General appearance: Alert - HEENT Head: Normocephalic, Atraumatic Eyes: Normal - Respiratory Respiratory status: No respiratory distress Chest status: Nontender Breath sounds: Normal. No: Rales, Rhonchi, Stridor, Wheezing Chest palpation: Normal - Cardiovascular Rhythm: Regular Heart sounds: Normal auscultation Murmur: No - Abdominal Inspection: Healed incision Distension: No distension Bowel sounds: Normal Tenderness: Tender, Other - Examination of patient's abdomen shows he has reproducible left lower quadrant pain to palpation and to ballottement. And it is more lateral than it is in the lower quadrant. It is along the rectus abdominis muscle as well. There is no flank tenderness to percussion. Bowel sounds are normal. The left testicle is normal in appearance and hang. There is normal cremaster reflex tenderness to the testicle to palpation. Organomegaly: No organomegaly - Genitourinary Inspection: Normal Tenderness: Nontender Cremasteric reflex: Normal Scrotum: Normal - Back Back: Normal, Nontender. No: Tender, Deformity/step-off, CVA tenderness, Vertebra tenderness, Scars - Neurological Neuro grossly intact: Yes Cognition: Normal Orientation: AAOx4 Emilie Coma Scale Eye Opening: Spontaneous Taylor Coma Scale Verbal: Oriented Emilie Coma Scale Motor: Obeys Commands Emilie Coma Scale Total: 15 Speech: Normal - Skin Skin Temperature: Warm Skin Moisture: Dry Skin Color: Normal Course - Re-evaluation Re-evalutation: 07/05/18 16:18 And talking with patient he has had 7 surgeries in the left lower quadrant area of her hernia repair. There is no evidence of stones passing the last day or so and there is a history of a colicky kind of presentation that caused him to vomit. The assumption that I am making at this point since his CT is negative is a patient has adhesions in the area that when he goes up and down ladders or the use of the muscles he goes into spasm and this causes the colicky type presentation and could possibly cause him to have severe enough spasm to vomit. Patient does not have a primary care provider at this point he is going to get one since he "just got his insurance". I suggested to him that he see PCP first and possibly get referred to a surgeon. I did inform him that the good news and bad news is if it is an adhesion they can cut it most likely and he will have some pain free. The bad news is this is surgery and can cause another adhesion. We are going to try patient on some Levsin 4 times a day for the next several days to see if this alleviates any of the discomfort. Patient is in agreement with this and he understands that if he gets more pronounced or he has increasing pain to return to ER for recheck. - Vital Signs Vital signs: Temp Pulse Resp BP Pulse Ox 98.4 F 64 16 126/69 H 100 07/05/18 14:18 07/05/18 14:18 07/05/18 14:18 07/05/18 14:18 07/05/18 14:18 - Laboratory Laboratory results interpreted by me: 07/05/18 14:55 Urine Protein 30 H Urine Urobilinogen 2.0 H Discharge - Discharge Clinical Impression: Renal colic on left side, Abdominal adhesions Condition: Stable Disposition: HOME, SELF-CARE Instructions: Abdominal Pain ([facility]), Antispasmodics ([facility]) Additional Instructions: Home today and rest. Try the medication for the spasm. As we discussed establish with a primary care provider and discuss with them a referral to surgeon for possible adhesions. Should you have any change in your presentation you spike a fever you see some hematuria or blood in your urine or you have any concerns return to ER for recheck. Prescriptions: Hyoscyamine Sulfate [Levsin 0.125 Tablet] 0.125 mg PO Q4 #30 tablet Forms: Smoking Cessation Education
== END 2018-07-05 17:10 | disposition home or self-care (01) ==
LOC: ER 14:01
DX: K66.0 Peritoneal adhesions (postprocedural) (postinfection) (principal); N20.0 Calculus of kidney; R10.32 Left lower quadrant pain; R11.10 Vomiting, unspecified; F17.210 Nicotine dependence, cigarettes, uncomplicated; J45.909 Unspecified asthma, uncomplicated; Z87.19 Personal history of other diseases of the digestive system; Z98.890 Other specified postprocedural states; Z88.0 Allergy status to penicillin; Z88.1 Allergy status to other antibiotic agents
CPT/HCPCS: 76380; 81001; 99284

== ENCOUNTER 2018-07-10 10:09 | Emergency (ER) | payer SELFPAY ==
[2018-07-10 10:23] VITALS: BP 124/75
[2018-07-10] MEDS ORDERED: OXYCODONE-ACETAMINOPHEN 5-325 MG TABLET PO ONE (10:59)
--- NOTE | 2018-07-10 11:02 | ER Document Report ---
ED Medical Screen (RME) - General Chief Complaint: Flank Pain Stated Complaint: FLANK PAIN Time Seen by Provider: 07/10/18 10:52 TRAVEL OUTSIDE OF THE [place] IN LAST 30 DAYS: No - HPI Patient complains to provider of: flank pain Onset: Other - 28-year-old man who presents for evaluation of persistent left- sided flank pain in the setting of a nephrolithiasis. He was diagnosed with a kidney stone 5 days prior, has had persistent pain since. He was started on an anti-spasmodic for his bladder which has helped only a little bit he has been using Motrin at home without any improvement denies any fevers however. This is the third stone he is never seen a urologist. - Related Data Allergies/Adverse Reactions: amoxicillin Allergy (Verified 07/10/18 10:56) cefaclor [From Ceclor] Allergy (Verified 07/10/18 10:56) hydrocodone Adverse Reaction (Verified 07/10/18 10:56) itching Past Medical History - Social History Chew tobacco use (# tins/day): No Frequency of alcohol use: Occasional Drug Abuse: None Pulmonary Medical History: Reports: Hx Asthma Denies: Hx Tuberculosis Renal/ Medical History: Reports: Hx Kidney Stones. Denies: Hx Peritoneal Dialysis Musculoskeltal Medical History: Reports Hx Musculoskeletal Deformity - scoliosis Traumatic Medical History: Reports: Hx Fractures Past Surgical History: Reports: Hx Abdominal Surgery - HERNIA X 8, a ventral hernia to inguinal hernia, Hx Inguinal Hernia - states 2 times - Immunizations Immunizations up to date: Yes Hx Diphtheria, Pertussis, Tetanus Vaccination: Yes History of Influenza Vaccine for 07/2017 - 11/2017 Season: Refused Physical Exam - Vital signs Vitals: Temp Pulse Resp BP Pulse Ox 98.5 F 81 20 124/75 100 07/10/18 10:21 07/10/18 10:21 07/10/18 10:21 07/10/18 10:21 07/10/18 10:21 Course - Re-evaluation Re-evalutation: 07/10/18 11:01 This is a gentleman who returns for pain associated with a kidney stone. He has had this pain for 5 days now and it has not changed. Denies fevers but has had worsening. We will obtain a chemistry as well as a urinalysis for possible infection or worsening creatinine. Plan for this patient undergo further investigation and possible imaging. I performed a rapid medical screening examination on this patient, believe she will require some further investigation and evaluation will defer further testing or disposition determination to another provider. - Vital Signs Vital signs: Temp Pulse Resp BP Pulse Ox 98.5 F 81 20 124/75 100 07/10/18 10:21 07/10/18 10:21 07/10/18 10:21 07/10/18 10:21 07/10/18 10:21
[2018-07-10 12:00] LABS: ANION GAP 11 (5-19); BLOOD UREA NITROGEN 12 mg/dL (7-20); CALCIUM 10.2 mg/dL (8.4-10.2); CARBON DIOXIDE 26 mmol/L (22-30); CHLORIDE 103 mmol/L (98-107); GLUCOSE 97 mg/dL (75-110); SODIUM 140.1 mmol/L (137-145)
--- NOTE | 2018-07-10 12:08 | ER Document Report ---
ED General - General Chief Complaint: Flank Pain Stated Complaint: FLANK PAIN Time Seen by Provider: 07/10/18 10:52 Mode of Arrival: Ambulatory Information source: Patient Notes: Patient is a 28-year-old male who presents emergency department complaints of left lower quadrant pain. Patient states that this is been intermittent in nature over the last couple of months. Patient states that he has a history of kidney stones and feels that this is a stone. Patient states that he was just seen in the emergency department 4 days ago. He was found to have a 2mm renal stone. There was concern for possible adhesions causing the pain as he has had 7 abdominal surgeries for hernia repair. Patient was given levsin for discomfort. Patient says that he's still having pain. Denies dysuria, hematuria , penile discharge, testicular pain, nausea, vomiting, diarrhea, constipation. TRAVEL OUTSIDE OF THE [place] IN LAST 30 DAYS: No - HPI Onset: Other - intermittent over months Onset/Duration: Intermittent Associated symptoms: None Exacerbated by: Denies Relieved by: Denies Similar symptoms previously: Yes Recently seen / treated by doctor: Yes - Related Data Allergies/Adverse Reactions: amoxicillin Allergy (Verified 07/10/18 10:56) cefaclor [From Ceclor] Allergy (Verified 07/10/18 10:56) hydrocodone Adverse Reaction (Verified 07/10/18 10:56) itching Past Medical History - Social History Smoking Status: Current Every Day Smoker Chew tobacco use (# tins/day): No Frequency of alcohol use: Occasional Drug Abuse: None Family History: Reviewed & Not Pertinent, Arthritis, Hypertension, Malignancy Patient has suicidal ideation: No Patient has homicidal ideation: No Pulmonary Medical History: Reports: Hx Asthma Denies: Hx Tuberculosis Renal/ Medical History: Reports: Hx Kidney Stones. Denies: Hx Peritoneal Dialysis Musculoskeletal Medical History: Reports Hx Musculoskeletal Deformity - scoliosis Traumatic Medical History: Reports: Hx Fractures Past Surgical History: Reports: Hx Abdominal Surgery - HERNIA X 8, a ventral hernia to inguinal hernia, Hx Inguinal Hernia - states 2 times - Immunizations Immunizations up to date: Yes Hx Diphtheria, Pertussis, Tetanus Vaccination: Yes Hx Pneumococcal Vaccination: 10/01/00 Review of Systems - Review of Systems Constitutional: No symptoms reported EENT: No symptoms reported Cardiovascular: No symptoms reported Respiratory: No symptoms reported Gastrointestinal: Abdominal pain Genitourinary: No symptoms reported Male Genitourinary: No symptoms reported Musculoskeletal: No symptoms reported Skin: No symptoms reported Hematologic/Lymphatic: No symptoms reported Neurological/Psychological: No symptoms reported -: Yes All other systems reviewed and negative Physical Exam - Vital signs Vitals: Temp Pulse Resp BP Pulse Ox 98.5 F 81 20 124/75 100 07/10/18 10:21 07/10/18 10:21 07/10/18 10:21 07/10/18 10:21 07/10/18 10:21 - Notes Notes: PHYSICAL EXAMINATION: GENERAL: Well-appearing, well-nourished and in no acute distress. HEAD: Atraumatic, normocephalic. EYES: Pupils equal round and reactive to light, extraocular movements intact, sclera anicteric, conjunctiva are normal. ENT: Nares patent, oropharynx clear without exudates. Moist mucous membranes. NECK: Normal range of motion, supple without lymphadenopathy LUNGS: Breath sounds clear to auscultation bilaterally and equal. No wheezes rales or rhonchi. HEART: Regular rate and rhythm without murmurs ABDOMEN: Soft, nontender, nondistended abdomen. No guarding, no rebound. No masses appreciated. Musculoskeletal: Normal range of motion, no pitting or edema. No cyanosis. NEUROLOGICAL: Cranial nerves grossly intact. Normal speech, normal gait. Normal sensory, motor exams PSYCH: Normal mood, normal affect. SKIN: Warm, Dry, normal turgor, no rashes or lesions noted. Course - Re-evaluation Re-evalutation: 07/10/18 12:12 My exam is benign. No tenderness to palpation of the abdomen. I reviewed the CT report. 2mm intrarenal stone. 07/10/18 13:02 Labs and imaging obtained. No signs of infection in the urine. Creatinine is within normal limits. X-ray does not show an acute process. Patient instructed to continue taking [id number] medication as needed for symptom relief, to follow-up with the urologist this week, and to return to the emergency department for worsening symptoms. Patient is agreeable with plan of care. - Vital Signs Vital signs: Temp Pulse Resp BP Pulse Ox 98.5 F 81 20 124/75 100 07/10/18 10:21 07/10/18 10:21 07/10/18 10:21 07/10/18 10:21 07/10/18 10:21 - Laboratory Result Diagrams: 07/10/18 11:15 Laboratory results interpreted by me: 07/10/18 11:15 Urine Blood SMALL H Discharge - Discharge Condition: Good Disposition: HOME, SELF-CARE Instructions: Flank Pain ([facility]) Prescriptions: Hyoscyamine Sulfate [Levsin] 0.125 mg PO Q4 #5 tablet Referrals: EDWIN GARCÍA MD [ACTIVE STAFF] - Follow up as needed NELSON FERRARO MD [EMERITUS] - Follow up as needed
[2018-07-10 12:24] LABS: APPEARANCE,URINE CLEAR; BILIRUBIN,URINE NEGATIVE (NEGATIVE); COLOR,URINE STRAW; GLUCOSE, URINE NEGATIVE (NEGATIVE); KETONES,URINE NEGATIVE (NEGATIVE); LEUKOCYTE ESTERASE,URINE NEGATIVE (NEGATIVE); NITRITE,URINE NEGATIVE (NEGATIVE); PROTEIN,URINE NEGATIVE (NEGATIVE); UROBILINOGEN,URINE NEGATIVE mg/dL (<2.0)
[2018-07-10 12:29] LABS: URINE SPECIFIC GRAVITY 1.012
--- NOTE | 2018-07-10 12:30 | RADIOLOGY REPORT (SQ) ---
EXAM DESCRIPTION: ACUTE ABDOMEN SERIES COMPLETED DATE/TIME: 07/10/2018 12:17 pm REASON FOR STUDY: L sided abdominal pain COMPARISON: CT abdomen pelvis 07/05/2018 NUMBER OF VIEWS: Three views. TECHNIQUE: Frontal chest, supine abdomen and upright abdomen radiographic images acquired. LIMITATIONS: None. FINDINGS: CHEST: Lungs clear of infiltrates. FREE AIR: None. No abnormal gas collections. BOWEL GAS PATTERN: Nonspecific nonobstructive bowel gas pattern with air-filled small bowel loops in the mid abdomen. CALCIFICATIONS: Tiny bilateral intrarenal stones seen on CT exam 07/05/2018 are difficult to visualize by plain film. HARDWARE: None in the abdomen. SOFT TISSUES: No gross mass or suggestion of organomegaly. BONES: No acute fracture. No worrisome bone lesions. OTHER: No other significant finding. IMPRESSION: Nonspecific nonobstructive bowel gas pattern. Tiny left-sided intrarenal stones seen 07/05/2018 are difficult to visualize by plain film TECHNICAL DOCUMENTATION: JOB ID: [id number] [employer]- All Rights Reserved Reading location - IP/workstation name: [email or web address]
== END 2018-07-10 13:17 | disposition home or self-care (01) ==
LOC: ER 10:09
DX: R10.9 Unspecified abdominal pain (principal); F17.200 Nicotine dependence, unspecified, uncomplicated; Z88.0 Allergy status to penicillin; Z88.6 Allergy status to analgesic agent; Z87.442 Personal history of urinary calculi
CPT/HCPCS: 36415; 74022; 80048; 81001; 99284

== ENCOUNTER 2018-08-30 11:26 | Emergency (ER) | payer SELFPAY ==
--- NOTE | 2018-08-30 14:07 | RADIOLOGY REPORT (SQ) ---
EXAM DESCRIPTION: VENOUS UNILATERAL LOWER COMPLETED DATE/TIME: 08/30/2018 1:58 pm REASON FOR STUDY: right leg swelling COMPARISON: None. TECHNIQUE: Dynamic and static vincent scale and color images acquired of the right arm venous system. S elected spectral images acquired with additional compression and augmentation maneuvers. The contrala teral subclavian vein and internal jugular vein were also imaged. Images stored on PACS. LIMITATIONS: None. FINDINGS: INTERNAL JUGULAR VEIN: Normal phasicity, compression, augmentation. No visualized echogeni c material on vincent scale. No defects on color images. Comparison opposite side normal. SUBCLAVIAN VEIN: Normal compression, augmentation. No visualized echogenic material on vincent scale. No defects on color images. AXILLARY VEIN: Normal compression, augmentation. No visualized echogenic material on vincent scale. No d efects on color images. BRACHIAL VEIN: Normal compression, augmentation. No visualized echogenic material on vincent scale. No d efects on color images. BASILIC VEIN: Normal compression, augmentation. No visualized echogenic material on vincent scale. No de fects on color images. CEPHALIC VEIN: Normal compression, augmentation. No visualized echogenic material on vincent scale. No d efects on color images. OTHER: No other significant finding. CONTRALATERAL SUBCLAVIAN VEIN AND INTERNAL JUGULAR VEIN: Normal phasicity, compression and augmentation. No visualized echogenic material on vincent scale. No de fects on color images. IMPRESSION: NO EVIDENCE DVT OR SVT IN THE RIGHT ARM. TECHNICAL DOCUMENTATION: JOB ID: [id number] [email or web address]- All Rights Reserved Reading location - IP/workstation name: [email or web address]
--- NOTE | 2018-08-30 14:29 | ER Document Report ---
HPI - HPI Time Seen by Provider: 08/30/18 12:27 Pain Level: 2 Notes: Patient is an otherwise healthy 28-year-old male who presents with chief complaint of right leg bruising. Patient reports that while he was at work today he all of a sudden felt a pain on the anterior aspect of his right thigh. He states he then pulled his pants down and noticed a bulging in his leg. The bulging has now subsided however there is now a bruise measuring approximately 2 cm x 7 cm in diameter. Patient denies any medical history. - CONSTITUTIONAL Constitutional: DENIES: Fever, Chills - EENT EENT: DENIES: Sore Throat, Ear Pain, Eye problems - NEURO Neurology: DENIES: Headache, Weakness, Vision blurred, Dizzinesss / Vertigo - CARDIOVASCULAR Cardiovascular: DENIES: Chest pain - RESPIRATORY Respiratory: DENIES: Trouble Breathing, Coughing - GASTROINTESTINAL Gastrointestinal: DENIES: Abdominal Pain, Black / Bloody Stools - URINARY Urinary: DENIES: Dysuria, Urgency, Frequency - REPRODUCTIVE Reproductive: DENIES: : - MUSCULOSKELETAL Musculoskeletal: DENIES: Extremity pain Past Medical History - General Information source: Patient - Social History Smoking Status: Current Every Day Smoker Chew tobacco use (# tins/day): No Frequency of alcohol use: Occasional Drug Abuse: None Family History: Reviewed & Not Pertinent, Arthritis, Hypertension, Malignancy Patient has suicidal ideation: No Patient has homicidal ideation: No Pulmonary Medical History: Reports: Hx Asthma Denies: Hx Tuberculosis Renal/ Medical History: Reports: Hx Kidney Stones. Denies: Hx Peritoneal Dialysis Musculoskeletal Medical History: Reports Hx Musculoskeletal Deformity - scoliosis Traumatic Medical History: Reports: Hx Fractures Past Surgical History: Reports: Hx Abdominal Surgery - HERNIA X 8, a ventral hernia to inguinal hernia, Hx Inguinal Hernia - states 2 times - Immunizations Immunizations up to date: Yes Hx Diphtheria, Pertussis, Tetanus Vaccination: Yes Hx Pneumococcal Vaccination: 10/01/00 Vertical Provider Document - CONSTITUTIONAL Agree With Documented VS: Yes Notes: PHYSICAL EXAMINATION: GENERAL: Well-appearing, well-nourished and in no acute distress. HEAD: Atraumatic, normocephalic. EYES: Pupils equal round extraocular movements intact, conjunctiva are normal. ENT: Nares patent NECK: Normal range of motion LUNGS: No respiratory distress Musculoskeletal: Normal range of motion NEUROLOGICAL: Normal speech, normal gait. PSYCH: Normal mood, normal affect. SKIN: Warm, Dry, normal turgor, no rashes or lesions noted. Ecchymosis noted to right anterior thigh measuring approximately 2 cm x 7 cm. - INFECTION CONTROL TRAVEL OUTSIDE OF THE [place] IN LAST 30 DAYS: No Course - Re-evaluation Re-evalutation: Ecchymosis noted to right thigh measuring 2 cm x 7 cm. Otherwise no swelling or erythema noted. No pain other than to palpation over the bruised area. Spoke with attending physician Dr. Anne who came to the patient's bedside and recommends doing a venous Doppler ultrasound. Venous Doppler ultrasound reveals a superficial venous thrombosis. Patient will be discharged home in stable condition. Patient given strict ED return precautions. - Vital Signs Vital signs: Temp Pulse Resp BP Pulse Ox 97.8 F 70 16 114/75 100 08/30/18 11:29 08/30/18 11:29 08/30/18 11:29 08/30/18 11:29 08/30/18 11:29 Discharge - Discharge Clinical Impression: Superficial vein thrombosis Condition: Stable Disposition: HOME, SELF-CARE Additional Instructions: You have a blood clot in one of the superficial veins of your leg. Warm compresses to the area. You may also take Tylenol for pain. Please return to the emergency department for repeat venous Doppler ultrasound if the pain goes up into your groin, you have increased redness or swelling to the area or any other symptom that is concerning to you. Forms: Return to Work
[2018-08-30 14:35] VITALS: BP 113/72
== END 2018-08-30 14:47 | disposition home or self-care (01) ==
LOC: ER 11:26
DX: I82.811 Embolism and thrombosis of superficial veins of right lower extremity (principal); F17.200 Nicotine dependence, unspecified, uncomplicated; Z87.442 Personal history of urinary calculi
CPT/HCPCS: 93971; 99283

== ENCOUNTER 2019-10-19 20:11 | Emergency (ER) | payer BC ==
[2019-10-19 20:21] VITALS: BP 135/72
[2019-10-19] MEDS ORDERED: LIDOCAINE 2% VISCOUS SOLN 15 ML UDCUP PO ONE (20:29)
[2019-10-19] MEDS ORDERED: IBUPROFEN 800 MG TABLET PO ONE (20:33)
--- NOTE | 2019-10-19 20:36 | ER Document Report ---
HPI - HPI Time Seen by Provider: 10/19/19 20:29 Notes: Patient is a 29-year-old male who presents to the ED complaining of right lower dental pain #31 on/off chronic but increased today when a piece of the tooth broke off. He is scheduled with a dentist on for extraction and is currently on antibiotics.. He has not noticed any obvious abscess or purulent discharge. Patient states that he is still able to eat and drink, but does have a decreased p.o. intake due to the pain. He has tried some [id number] meds with minimal relief. No other concerns or complaints. Denies any headache, fever, head injury, neck pain, hoarseness, drooling, URI, sore throat, chest pain, palpitations, syncope, cough, shortness of breath, wheeze, dyspnea, abdominal pain, nausea/vomiting/diarrhea, urinary retention, dysuria, hematuria, or rash. - ROS Systems Reviewed and Negative: Yes All other systems reviewed and negative - REPRODUCTIVE Reproductive: DENIES: : Past Medical History - Social History Smoking Status: Unknown if Ever Smoked Family History: Reviewed & Not Pertinent, Arthritis, Hypertension, Malignancy Pulmonary Medical History: Reports: Hx Asthma Denies: Hx Tuberculosis Renal/ Medical History: Reports: Hx Kidney Stones. Denies: Hx Peritoneal Dialysis Musculoskeletal Medical History: Reports Hx Musculoskeletal Deformity - scoliosis Traumatic Medical History: Reports: Hx Fractures Past Surgical History: Reports: Hx Abdominal Surgery - HERNIA X 8, a ventral hernia to inguinal hernia, Hx Inguinal Hernia - states 2 times - Immunizations Immunizations up to date: Yes Hx Diphtheria, Pertussis, Tetanus Vaccination: Yes Hx Pneumococcal Vaccination: 10/01/00 Vertical Provider Document - CONSTITUTIONAL Agree With Documented VS: Yes Notes: PHYSICAL EXAMINATION: GENERAL: Well-appearing, well-nourished and in no acute distress. HEAD: Atraumatic, normocephalic. EYES: Pupils equal round and reactive to light, extraocular movements intact, sclera anicteric, conjunctiva are normal. ENT: Nares patent and without discharge. oropharynx clear without exudates. No tonsilar hypertrophy or erythema. Moist mucous membranes. No sinus tenderness. Uvula midline. No palatine shift. No tongue protrusion. No respiratory compromise. Mouth: Poor dentition. + Severe decay and mild gingivitis. No obvious abscess or discharge noted. No facial swelling. + tenderness to tooth # 31. NECK: Normal range of motion, supple without lymphadenopathy. No rigidity/meningismus. LUNGS: Breath sounds clear to auscultation bilaterally and equal. No wheezes rales or rhonchi. HEART: Regular rate and rhythm without murmurs, rubs, gallops. NEUROLOGICAL: Cranial nerves grossly intact. Normal speech, normal gait. Normal sensory, motor exams PSYCH: Normal mood, normal affect. SKIN: Warm, Dry, normal turgor, no rashes or lesions noted. - INFECTION CONTROL TRAVEL OUTSIDE OF THE [place] IN LAST 30 DAYS: No Course - Re-evaluation Re-evalutation: 10/19/19 20:35 Patient is an afebrile, well-hydrated, 29-year-old male who presents to the ED with dental pain, suspect nerve root etiology versus infection. Vitals are acceptable. PE is otherwise unremarkable. No I&D, labs, or imaging warranted at this time based on H&P. Viscous lidocaine dispensed today. I will send him home with a prescription for Motrin. Patient is already on antibiotics otherwise. Low suspicion for any meningitis, sepsis, peritonsillar/pharyngeal abscess, respiratory compromise, Husam's, temporal arteritis, or other emergent systemic condition at this time. Patient is aware this condition can change from initial presentation and he needs to monitor symptoms closely. Conservative measures otherwise for symptoms. Call to schedule an appointment with a dentist for further evaluation and management. Recheck with your PCM this week as well. Return to the ED with any worsening/concerning symptoms otherwise as reviewed in discharge. Patient is in agreement. - Vital Signs Vital signs: Temp Pulse Resp BP Pulse Ox 98.0 F 73 16 135/72 H 98 10/19/19 20:19 10/19/19 20:19 10/19/19 20:19 10/19/19 20:19 10/19/19 20:19 Discharge - Discharge Clinical Impression: Pain, dental Condition: Stable Disposition: HOME, SELF-CARE Instructions: Toothache ([facility]) Additional Instructions: Busy and floss twice daily Maintain fluid intake Take antibiotics as directed Mouthwash, salt water gargles, peroxide rinse as needed Tylenol/ibuprofen as needed Recheck with PCM this week Call today/tomorrow and schedule an appointment with your dentist for further evaluation Return to the ED with any worsening symptoms and/or development of fever, headache, facial swelling, swelling of lips/tongue/throat, trouble swallowing, drooling, hoarseness, neck pain/stiffness, chest pain, palpitations, syncope, shortness of breath, trouble breathing, abdominal pain, n/v/d, numbness /tingling, or other worsening symptoms that are concerning to you. Prescriptions: Ibuprofen [Motrin 800 mg Tablet] 800 mg PO Q8H PRN #30 tab PRN Reason: Forms: Elevated Blood Pressure Referrals: [facility] [Provider Group] - Follow up as needed
== END 2019-10-19 21:17 | disposition home or self-care (01) ==
LOC: ER 20:11
DX: K02.9 Dental caries, unspecified (principal); K05.10 Chronic gingivitis, plaque induced; K08.89 Other specified disorders of teeth and supporting structures; J45.909 Unspecified asthma, uncomplicated
CPT/HCPCS: 99282; J3490